=== PATIENT | female | born 1945 | race Caucasian/White ===

== ENCOUNTER 2018-12-01 16:35 | Emergency (ER) | payer MEDICARE, OTHER ==
[~2018-12-01] VITALS: Ht 157.5 cm; Wt 61.2 kg
[~2018-12-01 16:35] MED LIST: ALEN70; ALEN70 PO; CALCAVITD PO; CHOL10002 PO; DONE10 PO; FLUO20 PO; LEVFLO250; LEVFLO500 PO; LEVSOD112 PO; LEVSOD137 PO; LEVSOD150; LOPE2C PO; MELO7.5 PO; PHENA200 PO; PRAM.125; PRAM.5 PO; PRED; PRED5 PO; VALD20
[2018-12-01 17:07] LABS: BASOPHILS ABSOLUTE AUTO 0.01 K/mm3 (0.00-0.23); BASOPHILS PERCENT AUTO 0 % (0-2); EOSINOPHILS ABSOLUTE AUTO 0.06 K/mm3 (0.00-0.68); EOSINOPHILS PERCENT AUTO 1 % (0-6); Hemoglobin 15.7 g/dL (11.5-16.0); IMMATURE GRAN ABSOLUTE AUTO 0.01 K/mm3 (0.00-0.10); IMMATURE GRAN PERCENT AUTO 0 % (0-1); LYMPHOCYTES ABSOLUTE AUTO 0.99 K/mm3 (0.84-5.20); LYMPHOCYTES PERCENT AUTO 18 % (21-46); MONOCYTES ABSOLUTE AUTO 0.35 K/mm3 (0.16-1.47); MONOCYTES PERCENT AUTO 7 % (4-13); Mean Corpuscular HGB 30.7 pg (26.0-34.0); Mean Corpuscular HGB Conc 33.4 g/dL (31.5-36.5); Mean Corpuscular Volume 92 fL (80-100); Mean Platelet Volume 8.5 fL (9.1-12.4); NEUTROPHILS ABSOLUTE AUTO 3.97 K/mm3 (1.96-9.15); NEUTROPHILS PERCENT AUTO 74 % (41-73); Platelet Count 271 K/mm3 (150-400); RDW Coefficient Variation 11.9 % (11.7-14.2); RDW Standard Deviation 40.6 fL (35.1-46.3); Red Blood Cell Count 5.12 M/mm3 (3.80-5.20); White Blood Cell Count 5.39 K/mm3 (4.00-11.30)
[2018-12-01 17:26] LABS: Albumin, Blood 3.9 g/dL (3.4-5.0); Bilirubin, Total 0.4 mg/dL (0.1-1.0); Bun/Creatinine Ratio 19.3 (12.0-20.0); Calcium, Blood 8.8 mg/dL (8.5-10.1); Creatinine, Blood 1.35 mg/dL (0.40-1.00); Potassium, Blood 3.3 mmol/L (3.5-5.5); Total Protein, Blood 7.9 g/dL (6.4-8.2)
[2018-12-01] MEDS ORDERED: Prozac40 MG PO (17:26)
[2018-12-01] MEDS ORDERED: Amphetamine Sal30 MG PO (17:28)
[2018-12-01] MEDS ORDERED: DONE5 PO (18:31)
[2018-12-01 19:12] LABS: Source, Urine Clean Catch
[2018-12-01 19:17] LABS: Bilirubin, Urine Neg (Neg); Blood, Urine 1+ (Neg); Glucose Qualitative, Urine Neg (Neg); Ketones, Urine Neg (Neg); Leukocyte Esterase, Urine 3+ (Neg); Nitrite, Urine Neg (Neg); Protein, Urine 2+ (Neg); Specific Gravity, Urine 1.025 (1.003-1.022); Urobilinogen, Urine NORM (Normal)
[2018-12-01 19:22] LABS: Appearance, Urine Clear (Clear); Color, Urine Yellow (P-Yellow)
[2018-12-01 19:25] LABS: Bacteria Mod /hpf; Squamous Epithelial Cells Few /hpf (Few); White Blood Cells, Urine 50-100 /hpf (0-5)
[2018-12-01] MEDS ORDERED: CEPH500 PO (19:36)
[2018-12-01] MEDS ORDERED: ONDA4ODT MM (19:36)
[2018-12-02 09:53] LABS: Albumin, Blood 4.2 g/dL (3.4-5.0); Albumin/Globulin Ratio 1.1 (0.8-1.8); Bilirubin, Total 0.5 mg/dL (0.1-1.0); Bun/Creatinine Ratio 18.2 (12.0-20.0); Calcium, Blood 9.2 mg/dL (8.5-10.1); Creatinine, Blood 1.48 mg/dL (0.40-1.00); Globulin, Blood 3.7 g/dL (2.2-4.0); Potassium, Blood 4.2 mmol/L (3.5-5.5); Total Protein, Blood 7.9 g/dL (6.4-8.2)
== END 2018-12-01 21:30 | disposition home or self-care (01) ==
LOC: ER 16:35
PROVIDERS: Emergency Medicine
DX: E86.0 Dehydration (principal); N39.0 Urinary tract infection, site not specified; Z91.048 Other nonmedicinal substance allergy status; Z88.8 Allergy status to other drugs, medicaments and biological substances; Z88.1 Allergy status to other antibiotic agents; Z79.899 Other long term (current) drug therapy
CPT/HCPCS: 36415; 80053; 81001; 83690; 83735; 85025; 87077; 87086; 87186; 96361; 96365; 96375; 99284-25; A9270-GY; J0696; J2405; J7030

== ENCOUNTER 2020-01-16 12:50 | Emergency (ER) | payer MEDICARE, OTHER ==
[~2020-01-16] VITALS: Ht 157.5 cm; Wt 54.4 kg
[~2020-01-16 12:50] MED LIST changes: +Amphetamine Sal30 MG PO; +CEPH500 PO; +DONE5 PO; +ONDA4ODT MM; +Prozac40 MG PO
[2020-01-16 13:56] LABS: BASOPHILS ABSOLUTE AUTO 0.03 K/mm3 (0.00-0.23); BASOPHILS PERCENT AUTO 0 % (0-2); EOSINOPHILS ABSOLUTE AUTO 0.04 K/mm3 (0.00-0.68); EOSINOPHILS PERCENT AUTO 1 % (0-6); Hematocrit 47.2 % (33.0-51.0); Hemoglobin 15.1 g/dL (11.5-16.0); IMMATURE GRAN ABSOLUTE AUTO 0.02 K/mm3 (0.00-0.10); IMMATURE GRAN PERCENT AUTO 0 % (0-1); LYMPHOCYTES PERCENT AUTO 14 % (21-46); MONOCYTES ABSOLUTE AUTO 0.42 K/mm3 (0.16-1.47); MONOCYTES PERCENT AUTO 6 % (4-13); Mean Corpuscular HGB 30.5 pg (26.0-34.0); Mean Corpuscular Volume 95 fL (80-100); Mean Platelet Volume 8.3 fL (9.1-12.4); NEUTROPHILS ABSOLUTE AUTO 5.66 K/mm3 (1.96-9.15); NEUTROPHILS PERCENT AUTO 79 % (41-73); Platelet Count 290 K/mm3 (150-400); RDW Coefficient Variation 12.4 % (11.7-14.2); RDW Standard Deviation 43.9 fL (35.1-46.3); Red Blood Cell Count 4.95 M/mm3 (3.80-5.20); White Blood Cell Count 7.17 K/mm3 (4.00-11.30)
[2020-01-16 14:12] LABS: Albumin, Blood 3.9 g/dL (3.4-5.0); Albumin/Globulin Ratio 1.1 (0.8-1.8); Bilirubin, Total 0.4 mg/dL (0.1-1.0); Bun/Creatinine Ratio 14.6 (12.0-20.0); Calcium, Blood 8.9 mg/dL (8.5-10.1); Creatinine, Blood 1.23 mg/dL (0.40-1.00); Globulin, Blood 3.7 g/dL (2.2-4.0); Potassium, Blood 3.7 mmol/L (3.5-5.5); Total Protein, Blood 7.6 g/dL (6.4-8.2)
[2020-01-16] MEDS ORDERED: ONDA4ODT MM (15:31)
== END 2020-01-16 15:52 | disposition home or self-care (01) ==
LOC: ER 12:50
PROVIDERS: Emergency Medicine
DX: R11.2 Nausea with vomiting, unspecified (principal); Z88.8 Allergy status to other drugs, medicaments and biological substances; Z91.048 Other nonmedicinal substance allergy status; Z88.1 Allergy status to other antibiotic agents; Z79.899 Other long term (current) drug therapy
CPT/HCPCS: 36415; 80053; 85025; 93005; 93010; 96361; 96374; 99284-25; J2405; J7030

== ENCOUNTER 2020-01-24 14:28 | Emergency (ER) | payer MEDICARE, OTHER ==
[~2020-01-24] VITALS: Ht 157.5 cm; Wt 56.7 kg
[2020-01-24 15:47] LABS: BASOPHILS ABSOLUTE AUTO 0.04 K/mm3 (0.00-0.23); BASOPHILS PERCENT AUTO 0 % (0-2); EOSINOPHILS ABSOLUTE AUTO 0.03 K/mm3 (0.00-0.68); EOSINOPHILS PERCENT AUTO 0 % (0-6); Hematocrit 47.9 % (33.0-51.0); Hemoglobin 15.6 g/dL (11.5-16.0); IMMATURE GRAN ABSOLUTE AUTO 0.04 K/mm3 (0.00-0.10); IMMATURE GRAN PERCENT AUTO 0 % (0-1); LYMPHOCYTES ABSOLUTE AUTO 1.27 K/mm3 (0.84-5.20); LYMPHOCYTES PERCENT AUTO 13 % (21-46); MONOCYTES ABSOLUTE AUTO 0.53 K/mm3 (0.16-1.47); MONOCYTES PERCENT AUTO 5 % (4-13); Mean Corpuscular HGB 30.8 pg (26.0-34.0); Mean Corpuscular HGB Conc 32.6 g/dL (31.5-36.5); Mean Corpuscular Volume 95 fL (80-100); Mean Platelet Volume 8.5 fL (9.1-12.4); NEUTROPHILS ABSOLUTE AUTO 8.09 K/mm3 (1.96-9.15); NEUTROPHILS PERCENT AUTO 81 % (41-73); Platelet Count 314 K/mm3 (150-400); RDW Coefficient Variation 12.3 % (11.7-14.2); RDW Standard Deviation 43.1 fL (35.1-46.3); Red Blood Cell Count 5.06 M/mm3 (3.80-5.20)
[2020-01-24 15:48] LABS: Albumin/Globulin Ratio 1.1 (0.8-1.8); Bilirubin, Total 0.5 mg/dL (0.1-1.0); Bun/Creatinine Ratio 18.4 (12.0-20.0); Calcium, Blood 9.3 mg/dL (8.5-10.1); Creatinine, Blood 1.63 mg/dL (0.40-1.00); Globulin, Blood 3.8 g/dL (2.2-4.0); Potassium, Blood 4.3 mmol/L (3.5-5.5); Total Protein, Blood 7.8 g/dL (6.4-8.2)
[2020-01-24] MEDS ORDERED: MECL25 PO (19:08)
== END 2020-01-24 19:50 | disposition home or self-care (01) ==
LOC: ER 14:28
PROVIDERS: Physician Assistant
DX: R42 Dizziness and giddiness (principal); R11.2 Nausea with vomiting, unspecified; E86.0 Dehydration; Z88.8 Allergy status to other drugs, medicaments and biological substances; Z91.048 Other nonmedicinal substance allergy status; Z88.1 Allergy status to other antibiotic agents; Z79.899 Other long term (current) drug therapy
CPT/HCPCS: 36415; 80053; 85025; 93005; 93010; 96361; 96374; 96375; 99284-25; J0780; J1200; J7030

== ENCOUNTER 2020-04-13 15:15 | Observation (INO) | payer MEDICARE, OTHER ==
[~2020-04-13] VITALS: Ht 157.5 cm; Wt 48.5 kg
[~2020-04-13 15:15] MED LIST changes: -DONE5 PO; -LEVSOD112 PO; +MECL25 PO; -Prozac40 MG PO
[2020-04-13 15:54] LABS: BASOPHILS ABSOLUTE AUTO 0.04 K/mm3 (0.00-0.23); BASOPHILS PERCENT AUTO 0 % (0-2); EOSINOPHILS ABSOLUTE AUTO 0.06 K/mm3 (0.00-0.68); EOSINOPHILS PERCENT AUTO 1 % (0-6); Hematocrit 45.3 % (33.0-51.0); Hemoglobin 15.3 g/dL (11.5-16.0); IMMATURE GRAN ABSOLUTE AUTO 0.06 K/mm3 (0.00-0.10); IMMATURE GRAN PERCENT AUTO 1 % (0-1); LYMPHOCYTES ABSOLUTE AUTO 1.24 K/mm3 (0.84-5.20); LYMPHOCYTES PERCENT AUTO 12 % (21-46); MONOCYTES ABSOLUTE AUTO 0.61 K/mm3 (0.16-1.47); MONOCYTES PERCENT AUTO 6 % (4-13); Mean Corpuscular HGB 30.7 pg (26.0-34.0); Mean Corpuscular HGB Conc 33.8 g/dL (31.5-36.5); Mean Corpuscular Volume 91 fL (80-100); Mean Platelet Volume 8.8 fL (9.1-12.4); NEUTROPHILS ABSOLUTE AUTO 8.24 K/mm3 (1.96-9.15); NEUTROPHILS PERCENT AUTO 80 % (41-73); Platelet Count 317 K/mm3 (150-400); RDW Standard Deviation 39.9 fL (35.1-46.3); Red Blood Cell Count 4.98 M/mm3 (3.80-5.20); White Blood Cell Count 10.25 K/mm3 (4.00-11.30)
[2020-04-13 16:15] LABS: Troponin I <0.015 ng/mL (0.000-0.040)
[2020-04-13 16:16] LABS: Alanine Aminotransfer (ALT/SGP 46 U/L (12-78); Albumin, Blood 3.7 g/dL (3.4-5.0); Alk Phos 86 U/L (50-136); Anion Gap 12 mmol/L (6-16); Aspartate Aminotrans (AST/SGOT 30 U/L (12-37); Bilirubin, Total 0.5 mg/dL (0.1-1.0); Blood Urea Nitrogen 69 mg/dL (8-24); Bun/Creatinine Ratio 25.7 (12.0-20.0); CO2, Blood 18 mmol/L (21-32); Calcium, Blood 9.1 mg/dL (8.5-10.1); Chloride, Blood 101 mmol/L (98-108); Creatinine, Blood 2.68 mg/dL (0.40-1.00); Globulin, Blood 3.8 g/dL (2.2-4.0); Glomerular Filtration Rate 18 (60-); Glucose, Blood 190 mg/dL (70-99); Potassium, Blood 5.1 mmol/L (3.5-5.5); Sodium, Blood 131 mmol/L (136-145); Total Protein, Blood 7.5 g/dL (6.4-8.2)
[2020-04-13] MEDS ORDERED: NEURONTIN300 MG PO (18:50)
[2020-04-13] MEDS ORDERED: PRED5 PO (18:51)
[2020-04-13] MEDS ORDERED: LEVSOD112 PO (18:52)
[2020-04-13] MEDS ORDERED: Mirapex0.25 MG PO (18:53)
[2020-04-13] MEDS ORDERED: Prozac40 MG PO (19:40)
[2020-04-13] MEDS ORDERED: DONEPEZIL HCL10 MG PO (19:40)
[2020-04-13] MEDS ORDERED: MOTION RELIEF25 M1 PO (19:46)
[2020-04-13] MEDS ORDERED: ZOFRAN8 MG PO (19:47)
--- NOTE | 2020-04-13 21:45 | NUR ---
REPORT RECEIVED FROM MARCOED RN AT 2122. PT TRANSPORTED TO MEDICAL FLOOR VIA GURNEY, AMBULATED TO BATHROOM AND BACK TO BED ON ARRIVAL TO FLOOR WITH SBA STEADY GAIT, NO S/S ACUTE DISTRESS NOTED. RESPS EVEN AND UNLABORED, VSS. PT A&O, PLEASANT, BUT VERY [place]. SITUATED IN BED, BROUGHT PT WARM BLANKETS. ORIENTED TO ROOM AND UNIT, DEMONSTRATED HOW TO USE CALL LIGHT. SIDERAILS UP X3, CALL LIGHT, POSSESSIONS IN REACH, BED IN LOWEST POSITION WITH ALARM ON. CALL LIGHT, POSSESSSIONS IN REACH. WILL CONTINUE TO MONITOR.
--- NOTE | 2020-04-13 22:20 | NUR ---
SPOKE TO DR. SLATER TO CLARIFY PT'S ORDERS FOR IVF. STATED TO CONTINUE NS ORDERED PER EMAR. NO OTHER ORDERS RECEIVED. CONTINUE TO MONITOR.
--- NOTE | 2020-04-13 22:54 | NUR ---
CALL PLACED TO PT'S TO CLARIFY MEDICATIONS AND HX, PT IS A POOR HISTORIAN, DOESN'T EASILY REMEMBER OWN MEDICATIONS OR HX. ADMISSION HX AND MED-REC COMPLETED. DENIES QUESTIONS OR CONCERNS AT THIS TIME. PLANS TO VISIT PT TOMORROW.
[2020-04-14 04:57] LABS: BASOPHILS ABSOLUTE AUTO 0.04 K/mm3 (0.00-0.23); BASOPHILS PERCENT AUTO 0 % (0-2); EOSINOPHILS ABSOLUTE AUTO 0.21 K/mm3 (0.00-0.68); EOSINOPHILS PERCENT AUTO 2 % (0-6); Hematocrit 38.7 % (33.0-51.0); Hemoglobin 12.9 g/dL (11.5-16.0); IMMATURE GRAN ABSOLUTE AUTO 0.05 K/mm3 (0.00-0.10); IMMATURE GRAN PERCENT AUTO 1 % (0-1); LYMPHOCYTES ABSOLUTE AUTO 2.15 K/mm3 (0.84-5.20); LYMPHOCYTES PERCENT AUTO 24 % (21-46); MONOCYTES ABSOLUTE AUTO 0.75 K/mm3 (0.16-1.47); MONOCYTES PERCENT AUTO 8 % (4-13); Mean Corpuscular HGB 30.6 pg (26.0-34.0); Mean Corpuscular HGB Conc 33.3 g/dL (31.5-36.5); Mean Corpuscular Volume 92 fL (80-100); Mean Platelet Volume 8.6 fL (9.1-12.4); NEUTROPHILS ABSOLUTE AUTO 5.82 K/mm3 (1.96-9.15); NEUTROPHILS PERCENT AUTO 65 % (41-73); Platelet Count 256 K/mm3 (150-400); RDW Coefficient Variation 12.2 % (11.7-14.2); RDW Standard Deviation 41.1 fL (35.1-46.3); Red Blood Cell Count 4.22 M/mm3 (3.80-5.20); White Blood Cell Count 9.02 K/mm3 (4.00-11.30)
[2020-04-14 05:34] LABS: Thyroid Stimulating Hormone 0.615 uIU/mL (0.360-4.800)
[2020-04-14 05:35] LABS: Calcium, Blood 8.2 mg/dL (8.5-10.1); Creatinine, Blood 2.25 mg/dL (0.40-1.00); Potassium, Blood 4.7 mmol/L (3.5-5.5)
--- NOTE | 2020-04-14 06:33 | NUR ---
SHIFT SUMMARY PT HAS HAD NO ACUTE CHANGES IN CONDITION SINCE ARRIVAL TO MEDICAL FLOOR. WAS MONITORED EVERY 1-2 HOURS WITH NEEDS MET. SLEPT T/O NIGHT. VSS. IVF ONGOING. PT DENIES NEEDS AT THIS TIME. CALL LIGHT, POSSESSIONS IN REACH. BED IN LOW POSITION WITH ALARMS ON. WILL CONTINUE TO MONITOR AND PROVIDE CARE NEEDED UNTIL DAY RN ASSUMES CARE.
--- NOTE | 2020-04-14 14:22 | NUR ---
Met with patients to review pt needs and goals of care. Pt was blae to nod and smile but non verbal and slept throught the visit. states he is the primary caregiver and has minimal help. He states on her good days she was still very active and they would get out and do some activities. He states she has been declining more in her ability to maintain her fluid balance. He is wondering if her gut is shutting down. We reviewed he disease process and fluid balnace. Gave him some strategie son monitoring her fluid balance. Daily weights and bp checks and intak and output. Discussed her fall risks and risk for injury. Reviewed home health and hospice care and stategies of future care. integration manager was present. Suggest home health for neuro assessment and vitals checks and increased lab draws. Discussed that with his primary care PA and home hardy they can help hism decide on when to do hospice. Review of hospice holistic care and support and reducing suffering. states they have a will and POA he believes they have a advance directive and she would not want life support. Advised she is full code. Review of POLST form and having it on record he is amendable to filling one out. He is meeting with home care manager rn and will follow up. updated nursing on consult.
--- NOTE | 2020-04-14 14:25 | NUR ---
IVF RATE INCREASED FROM 75ML/HR TO 100ML/HR
[2020-04-14 17:40] LABS: Appearance, Urine Hazy (Clear); Bilirubin, Urine Neg (Neg); Blood, Urine 2+ (Neg); Color, Urine Yellow (P-Yellow); Glucose Qualitative, Urine Neg (Neg); Ketones, Urine Neg (Neg); Leukocyte Esterase, Urine 3+ (Neg); Nitrite, Urine Pos (Neg); Protein, Urine 1+ (Neg); Urobilinogen, Urine NORM (Normal)
[2020-04-14 17:55] LABS: Bacteria Many /hpf; Squamous Epithelial Cells Few /hpf (Few)
--- NOTE | 2020-04-15 04:24 | NUR ---
SHIFT SUMMARY: VSS. AFEB. AAOX2. PLEASANTLY CONFUSED/FORGETFUL. EASILY REDIRECTABLE. VERY [place]. PT DOES NOT KNOW WHERE HER HEARING AIDS ARE. DENIES DIZZINESS, LIGHTHEADEDNESS UPON STANDING. UP W/SBA. MANAGING ILEOSTOMY INDEPENDENTLY. FLUIDS ENCOURAGED AT HS. PT TAKING ONLY SMALL SIPS OF FLUIDS. SLEPT WELL THROUGH MOST OF THE NIGHT. NO ACUTE CHANGES AT THIS TIME.
[2020-04-15 06:01] LABS: BASOPHILS ABSOLUTE AUTO 0.03 K/mm3 (0.00-0.23); BASOPHILS PERCENT AUTO 0 % (0-2); EOSINOPHILS ABSOLUTE AUTO 0.18 K/mm3 (0.00-0.68); EOSINOPHILS PERCENT AUTO 2 % (0-6); Hematocrit 42.2 % (33.0-51.0); Hemoglobin 13.7 g/dL (11.5-16.0); IMMATURE GRAN ABSOLUTE AUTO 0.05 K/mm3 (0.00-0.10); IMMATURE GRAN PERCENT AUTO 1 % (0-1); LYMPHOCYTES ABSOLUTE AUTO 1.56 K/mm3 (0.84-5.20); LYMPHOCYTES PERCENT AUTO 18 % (21-46); MONOCYTES ABSOLUTE AUTO 0.69 K/mm3 (0.16-1.47); MONOCYTES PERCENT AUTO 8 % (4-13); Mean Corpuscular HGB 30.8 pg (26.0-34.0); Mean Corpuscular HGB Conc 32.5 g/dL (31.5-36.5); Mean Corpuscular Volume 95 fL (80-100); Mean Platelet Volume 8.5 fL (9.1-12.4); NEUTROPHILS ABSOLUTE AUTO 6.15 K/mm3 (1.96-9.15); NEUTROPHILS PERCENT AUTO 71 % (41-73); Platelet Count 265 K/mm3 (150-400); Red Blood Cell Count 4.45 M/mm3 (3.80-5.20); White Blood Cell Count 8.66 K/mm3 (4.00-11.30)
[2020-04-15 06:16] LABS: Albumin, Blood 3.2 g/dL (3.4-5.0); Anion Gap 7 mmol/L (6-16); Blood Urea Nitrogen 46 mg/dL (8-24); Bun/Creatinine Ratio 28.4 (12.0-20.0); CO2, Blood 23 mmol/L (21-32); Calcium, Blood 8.2 mg/dL (8.5-10.1); Chloride, Blood 110 mmol/L (98-108); Creatinine, Blood 1.62 mg/dL (0.40-1.00); Glomerular Filtration Rate 33 (60-); Glucose, Blood 80 mg/dL (70-99); Phosphorus, Blood 4.3 mg/dL (2.5-4.9); Potassium, Blood 3.6 mmol/L (3.5-5.5); Sodium, Blood 140 mmol/L (136-145)
--- NOTE | 2020-04-15 17:21 | NUR ---
Shift Summary A/Oxself and family. Also knows city, but could not recall hospital name. Ortho vitals completed in AM, see EHR. Independent, cares for own ileostomy. Drainage in ileostomy is liquidy and brown. Calls appropriately for needs. has been at bedside most of the day. Physical therapy evaluated patient today, see PT notes. Denies pain, nausea, vomiting, sob. Appetite probably could be better. No acute changes or concerns. Will continue to monitor.
--- NOTE | 2020-04-16 04:18 | NUR ---
SHIFT SUMMARY: VSS. AFEB. AAOX2. VERY [place]. ABLE TO COMMUNICATE NEEDS. PLEASANT. IV FLUIDS CONTINUOUSLY THROUGH THE NIGHT PER ORDERS. PT REPORTING FEELING BETTER OVERALL. DENIES DIZZINESS/LIGHTHEADEDNESS. SOME NAUSEA INITIALLY TONIGHT AFTER DINNER, RESOLVED. NPS ILEOSTOMY INDEPENDENTLY. NO ACUTE CONCERNS AT THIS TIME.
[2020-04-16 07:48] LABS: Albumin, Blood 2.6 g/dL (3.4-5.0); Anion Gap 6 mmol/L (6-16); Blood Urea Nitrogen 33 mg/dL (8-24); CO2, Blood 20 mmol/L (21-32); Calcium, Blood 7.7 mg/dL (8.5-10.1); Chloride, Blood 116 mmol/L (98-108); Creatinine, Blood 1.27 mg/dL (0.40-1.00); Glomerular Filtration Rate 44 (60-); Glucose, Blood 78 mg/dL (70-99); Potassium, Blood 3.2 mmol/L (3.5-5.5); Sodium, Blood 142 mmol/L (136-145)
--- NOTE | 2020-04-16 11:01 | NUR ---
Discharge Summary Patient discharging to home. Patient is extremely [place] and has only one side hearing aid that does not work very well so this RN reviewed discharge paperwork with patient and at bedside. Copy provided. IV removed, WNL. Gave time to ask questions, patient and had none. Personal belongings sent home. Escorted by HARNESS [employer]TER via w/c. Personal transport home.
== END 2020-04-16 11:32 | disposition home or self-care (01) ==
LOC: ER 15:15 → MEDS 15:16 → ER 21:30 → MEDS 21:41
PROVIDERS: Internal Medicine; Physician Assistant; ADMIT Internal Medicine
DX: N17.9 Acute kidney failure, unspecified (principal); R55 Syncope and collapse; K50.90 Crohn's disease, unspecified, without complications; E46 Unspecified protein-calorie malnutrition; E86.0 Dehydration; F01.50 Vascular dementia, unspecified severity, without behavioral disturbance, psychotic disturbance, mood disturbance, and anxiety; Z88.8 Allergy status to other drugs, medicaments and biological substances; Z88.1 Allergy status to other antibiotic agents; Z79.899 Other long term (current) drug therapy; Z90.49 Acquired absence of other specified parts of digestive tract; F03.90 Unspecified dementia, unspecified severity, without behavioral disturbance, psychotic disturbance, mood disturbance, and anxiety; E89.0 Postprocedural hypothyroidism; Z85.850 Personal history of malignant neoplasm of thyroid; Z93.2 Ileostomy status; Z86.73 Personal history of transient ischemic attack (TIA), and cerebral infarction without residual deficits; Z68.1 Body mass index [BMI] 19.9 or less, adult
CPT/HCPCS: 36415; 71046; 80048; 80053; 80069; 81001; 82947; 83036; 84443; 84484; 85025; 87086; 92610; 93005; 93010; 93306; 96360; 96361; 97110; 97116; 97162; 99285-25; G0378; J7030; J7120; J7512

== ENCOUNTER 2020-04-28 16:04 | Observation (INO) | payer MEDICARE, OTHER ==
[~2020-04-28] VITALS: Ht 157.5 cm; Wt 48.4 kg
[2020-04-28 17:09] LABS: BASOPHILS ABSOLUTE AUTO 0.03 K/mm3 (0.00-0.23); BASOPHILS PERCENT AUTO 0 % (0-2); EOSINOPHILS ABSOLUTE AUTO 0.13 K/mm3 (0.00-0.68); EOSINOPHILS PERCENT AUTO 2 % (0-6); Hematocrit 44.8 % (33.0-51.0); Hemoglobin 14.4 g/dL (11.5-16.0); IMMATURE GRAN ABSOLUTE AUTO 0.03 K/mm3 (0.00-0.10); IMMATURE GRAN PERCENT AUTO 0 % (0-1); LYMPHOCYTES ABSOLUTE AUTO 1.19 K/mm3 (0.84-5.20); LYMPHOCYTES PERCENT AUTO 14 % (21-46); MONOCYTES PERCENT AUTO 7 % (4-13); Mean Corpuscular HGB 30.3 pg (26.0-34.0); Mean Corpuscular HGB Conc 32.1 g/dL (31.5-36.5); Mean Corpuscular Volume 94 fL (80-100); Mean Platelet Volume 8.3 fL (9.1-12.4); NEUTROPHILS ABSOLUTE AUTO 6.83 K/mm3 (1.96-9.15); NEUTROPHILS PERCENT AUTO 78 % (41-73); Platelet Count 330 K/mm3 (150-400); RDW Coefficient Variation 12.8 % (11.7-14.2); RDW Standard Deviation 44.3 fL (35.1-46.3); Red Blood Cell Count 4.76 M/mm3 (3.80-5.20); White Blood Cell Count 8.81 K/mm3 (4.00-11.30)
[2020-04-28 17:27] LABS: Albumin, Blood 3.8 g/dL (3.4-5.0); Albumin/Globulin Ratio 0.9 (0.8-1.8); Bilirubin, Total 0.4 mg/dL (0.1-1.0); Bun/Creatinine Ratio 19.5 (12.0-20.0); Calcium, Blood 9.4 mg/dL (8.5-10.1); Creatinine, Blood 1.64 mg/dL (0.40-1.00); Globulin, Blood 4.1 g/dL (2.2-4.0); Total Protein, Blood 7.9 g/dL (6.4-8.2)
[2020-04-28] MEDS ORDERED: LEVSOD112 PO (18:03)
[2020-04-28] MEDS ORDERED: NEURONTIN300 MG PO (18:03)
[2020-04-28] MEDS ORDERED: PRED5 PO (18:04)
[2020-04-28 18:13] LABS: Source, Urine Clean Catch
[2020-04-28] MEDS ORDERED: DONEPEZIL HCL10 MG PO (18:34)
[2020-04-28] MEDS ORDERED: Prozac40 MG PO (18:34)
[2020-04-28] MEDS ORDERED: Mirapex0.25 MG PO (18:34)
[2020-04-28] MEDS ORDERED: ZOFRAN8 MG PO (18:35)
[2020-04-28] MEDS ORDERED: MOTION RELIEF25 M1 PO (18:35)
[2020-04-28 18:42] LABS: Bilirubin, Urine Neg (Neg); Blood, Urine 4+ (Neg); Glucose Qualitative, Urine Neg (Neg); Ketones, Urine 2+ (Neg); Leukocyte Esterase, Urine 3+ (Neg); Nitrite, Urine Pos (Neg); Protein, Urine 2+ (Neg); Specific Gravity, Urine 1.025 (1.003-1.022); Urobilinogen, Urine NORM (Normal)
[2020-04-28 18:55] LABS: Appearance, Urine Cloudy (Clear); Color, Urine Yellow (P-Yellow)
[2020-04-28 18:56] LABS: Bacteria Many /hpf; Red Blood Cells, Urine TNTC /hpf (0-2); Squamous Epithelial Cells Few /hpf (Few); Transitional Epithelial Cells Few /hpf (0-Rare); White Blood Cells, Urine TNTC /hpf (0-5)
[2020-04-29 05:01] LABS: Bun/Creatinine Ratio 19.5 (12.0-20.0); Creatinine, Blood 1.49 mg/dL (0.40-1.00); Potassium, Blood 3.8 mmol/L (3.5-5.5)
--- NOTE | 2020-04-29 05:45 | NUR ---
SHIFT SUMMARY- PT. NEW ADMIT FROM ED. A&O, FORGETFUL, AND ALSO VERY [place]. PT. HAS HX OF DEMENTIA. SLEPT WELL LAST NIGHT, NO APPARENT DISTRESS NOTED. PT. CALLS APPROPRIATELY, VSS. NO COMPLAINTS. CALL LIGHT WITHIN REACH, SIDE RAILS UPX2, AND BED IN LOW POSITION. WILL CONT TO MONITOR.
[2020-04-29] MEDS ORDERED: CEPH500 PO (12:05)
--- NOTE | 2020-04-29 14:15 | NUR ---
will review pt with with rosendo zavaleta for possible transtion to hospice when ready.
--- NOTE | 2020-04-29 16:35 | NUR ---
PT DISCHARGED 1345 WITH DC INSTRUCTIONS GIVEN TO PT AND . RX FAXED TO PHARMACY. GIVEN ANTIBIOTIC BEFORE SHE LEFT AND INSTRUCTED TO TAKE 2ND TONIGHT. WHEELCHAIR ESCORT OUT TO CAR, TO DRIVE PT HOME AND F/U WITH PCP IN ONE WEEK, INCLUDING F/U WITH H PYLORI
== END 2020-04-29 13:45 | disposition home or self-care (01) ==
LOC: ER 16:04 → MEDS 16:05 → ER 20:03 → MEDS 20:18
PROVIDERS: Physician Assistant; ADMIT Internal Medicine
DX: E86.0 Dehydration (principal); N18.3 Chronic kidney disease, stage 3 (moderate); N17.9 Acute kidney failure, unspecified; Z90.49 Acquired absence of other specified parts of digestive tract; F01.50 Vascular dementia, unspecified severity, without behavioral disturbance, psychotic disturbance, mood disturbance, and anxiety; N39.0 Urinary tract infection, site not specified; Z79.899 Other long term (current) drug therapy; E89.0 Postprocedural hypothyroidism; Z88.8 Allergy status to other drugs, medicaments and biological substances; Z88.1 Allergy status to other antibiotic agents; Z93.2 Ileostomy status
CPT/HCPCS: 36415; 80048; 80053; 81001; 83690; 85025; 87077; 87086; 87186; 87338; 93005; 93010; 96374; 97162; 99285-25; A9270-GY; J1650; J2405; J7030; J7120

== ENCOUNTER 2020-05-02 00:09 | Day surgery (SDC) | payer MEDICARE, OTHER ==
[~2020-05-02 00:09] MED LIST changes: +DONEPEZIL HCL10 MG PO; +LEVSOD112 PO; +MOTION RELIEF25 M1 PO; +Mirapex0.25 MG PO; +NEURONTIN300 MG PO; +Prozac40 MG PO; +ZOFRAN8 MG PO
== END 2020-05-02 22:45 | disposition home or self-care (01) ==
LOC: ATC 00:09
DX: E86.0 Dehydration (principal); N18.3 Chronic kidney disease, stage 3 (moderate); E89.0 Postprocedural hypothyroidism; N17.9 Acute kidney failure, unspecified; F01.50 Vascular dementia, unspecified severity, without behavioral disturbance, psychotic disturbance, mood disturbance, and anxiety; R11.0 Nausea; Z79.899 Other long term (current) drug therapy; Z88.8 Allergy status to other drugs, medicaments and biological substances; Z93.2 Ileostomy status; Z88.1 Allergy status to other antibiotic agents; Z90.49 Acquired absence of other specified parts of digestive tract
CPT/HCPCS: 36569; C1751; C1894

== ENCOUNTER 2020-05-10 00:25 | Day surgery (SDC) | payer MEDICARE, OTHER | END 2020-05-10 12:11 | disposition home or self-care (01) | LOC: ATC 00:25 | DX: E86.0 Dehydration (principal); F01.50 Vascular dementia, unspecified severity, without behavioral disturbance, psychotic disturbance, mood disturbance, and anxiety; H11.042 Peripheral pterygium, stationary, left eye; K91.2 Postsurgical malabsorption, not elsewhere classified; E03.9 Hypothyroidism, unspecified; K50.90 Crohn's disease, unspecified, without complications; C73 Malignant neoplasm of thyroid gland; C50.919 Malignant neoplasm of unspecified site of unspecified female breast; G25.81 Restless legs syndrome; M19.90 Unspecified osteoarthritis, unspecified site; K63.3 Ulcer of intestine; H91.93 Unspecified hearing loss, bilateral; I10 Essential (primary) hypertension; Z88.1 Allergy status to other antibiotic agents; Z88.8 Allergy status to other drugs, medicaments and biological substances; Z79.899 Other long term (current) drug therapy | CPT/HCPCS: 96360; 96361; J7030; J7040 ==

== ENCOUNTER 2020-05-17 00:21 | Day surgery (SDC) | payer MEDICARE, OTHER | END 2020-05-17 13:10 | disposition home or self-care (01) | LOC: ATC 00:21 | DX: E86.0 Dehydration (principal); F01.50 Vascular dementia, unspecified severity, without behavioral disturbance, psychotic disturbance, mood disturbance, and anxiety; H11.042 Peripheral pterygium, stationary, left eye; K91.2 Postsurgical malabsorption, not elsewhere classified; M06.9 Rheumatoid arthritis, unspecified; E03.9 Hypothyroidism, unspecified; K50.90 Crohn's disease, unspecified, without complications; C73 Malignant neoplasm of thyroid gland; C50.919 Malignant neoplasm of unspecified site of unspecified female breast; G25.81 Restless legs syndrome; M19.90 Unspecified osteoarthritis, unspecified site; K63.3 Ulcer of intestine; H91.93 Unspecified hearing loss, bilateral; Z88.1 Allergy status to other antibiotic agents; Z79.899 Other long term (current) drug therapy | CPT/HCPCS: 96360; 96361; J7030 ==

== ENCOUNTER 2020-05-22 00:17 | Day surgery (SDC) | payer MEDICARE, OTHER | END 2020-05-22 17:19 | disposition home or self-care (01) | LOC: ATC 00:17 | DX: E86.0 Dehydration (principal); F01.50 Vascular dementia, unspecified severity, without behavioral disturbance, psychotic disturbance, mood disturbance, and anxiety; H11.042 Peripheral pterygium, stationary, left eye; K91.2 Postsurgical malabsorption, not elsewhere classified; E03.9 Hypothyroidism, unspecified; K50.90 Crohn's disease, unspecified, without complications; C73 Malignant neoplasm of thyroid gland; C50.919 Malignant neoplasm of unspecified site of unspecified female breast; G25.81 Restless legs syndrome; M19.90 Unspecified osteoarthritis, unspecified site; K63.3 Ulcer of intestine; H91.93 Unspecified hearing loss, bilateral; Z88.1 Allergy status to other antibiotic agents; N18.2 Chronic kidney disease, stage 2 (mild); Z79.899 Other long term (current) drug therapy | CPT/HCPCS: 96360; 96361; J7030 ==

== ENCOUNTER 2020-05-29 00:17 | Day surgery (SDC) | payer MEDICARE, OTHER | END 2020-05-29 15:27 | disposition home or self-care (01) | LOC: ATC 00:17 | DX: E86.0 Dehydration (principal); F01.50 Vascular dementia, unspecified severity, without behavioral disturbance, psychotic disturbance, mood disturbance, and anxiety; H11.042 Peripheral pterygium, stationary, left eye; K91.2 Postsurgical malabsorption, not elsewhere classified; E03.9 Hypothyroidism, unspecified; K50.90 Crohn's disease, unspecified, without complications; C73 Malignant neoplasm of thyroid gland; C50.919 Malignant neoplasm of unspecified site of unspecified female breast; G25.81 Restless legs syndrome; M19.90 Unspecified osteoarthritis, unspecified site; K63.3 Ulcer of intestine; H91.93 Unspecified hearing loss, bilateral; Z88.1 Allergy status to other antibiotic agents; Z79.899 Other long term (current) drug therapy | CPT/HCPCS: 96360; J7030; J7040 ==

== ENCOUNTER 2020-06-05 00:18 | Day surgery (SDC) | payer MEDICARE, OTHER | END 2020-06-05 22:41 | disposition home or self-care (01) | LOC: ATC 00:18 | DX: E86.0 Dehydration (principal); F01.50 Vascular dementia, unspecified severity, without behavioral disturbance, psychotic disturbance, mood disturbance, and anxiety; H11.042 Peripheral pterygium, stationary, left eye; K91.2 Postsurgical malabsorption, not elsewhere classified; E03.9 Hypothyroidism, unspecified; K50.90 Crohn's disease, unspecified, without complications; C73 Malignant neoplasm of thyroid gland; C50.919 Malignant neoplasm of unspecified site of unspecified female breast; G25.81 Restless legs syndrome; M19.90 Unspecified osteoarthritis, unspecified site; K63.3 Ulcer of intestine; H91.93 Unspecified hearing loss, bilateral; Z88.8 Allergy status to other drugs, medicaments and biological substances; N18.2 Chronic kidney disease, stage 2 (mild); Z79.899 Other long term (current) drug therapy | CPT/HCPCS: 96360; 96361; J7030; J7040 ==

== ENCOUNTER 2020-06-13 00:25 | Day surgery (SDC) | payer MEDICARE, OTHER ==
[~2020-06-13 00:25] MED LIST changes: +ONDA8 PO; -ZOFRAN8 MG PO
== END 2020-06-13 17:15 | disposition home or self-care (01) ==
LOC: ATC 00:25
DX: E86.0 Dehydration (principal); N18.2 Chronic kidney disease, stage 2 (mild); K91.2 Postsurgical malabsorption, not elsewhere classified; E03.9 Hypothyroidism, unspecified; F01.50 Vascular dementia, unspecified severity, without behavioral disturbance, psychotic disturbance, mood disturbance, and anxiety; H11.042 Peripheral pterygium, stationary, left eye; C73 Malignant neoplasm of thyroid gland; C50.919 Malignant neoplasm of unspecified site of unspecified female breast; G25.81 Restless legs syndrome; M19.90 Unspecified osteoarthritis, unspecified site; H91.93 Unspecified hearing loss, bilateral; Z93.2 Ileostomy status; Z79.899 Other long term (current) drug therapy; Z88.1 Allergy status to other antibiotic agents; Z88.8 Allergy status to other drugs, medicaments and biological substances; Z91.048 Other nonmedicinal substance allergy status; Z51.5 Encounter for palliative care
CPT/HCPCS: 96360; 96361; J7030

== ENCOUNTER 2020-06-21 03:10 | Day surgery (SDC) | payer MEDICARE, OTHER | END 2020-06-21 15:00 | disposition home or self-care (01) | LOC: ATC 03:10 | DX: E86.0 Dehydration (principal); K91.2 Postsurgical malabsorption, not elsewhere classified; C73 Malignant neoplasm of thyroid gland; C50.919 Malignant neoplasm of unspecified site of unspecified female breast; F01.50 Vascular dementia, unspecified severity, without behavioral disturbance, psychotic disturbance, mood disturbance, and anxiety; H11.042 Peripheral pterygium, stationary, left eye; M06.9 Rheumatoid arthritis, unspecified; E03.9 Hypothyroidism, unspecified; G25.81 Restless legs syndrome; M19.90 Unspecified osteoarthritis, unspecified site; H91.93 Unspecified hearing loss, bilateral; Z88.1 Allergy status to other antibiotic agents; Z88.8 Allergy status to other drugs, medicaments and biological substances; Z91.048 Other nonmedicinal substance allergy status; Z51.5 Encounter for palliative care; Z79.899 Other long term (current) drug therapy | CPT/HCPCS: 96360; J7030; J7040 ==

== ENCOUNTER 2020-06-28 02:43 | Day surgery (SDC) | payer MEDICARE, OTHER | END 2020-06-28 12:47 | disposition home or self-care (01) | LOC: ATC 02:43 | DX: E86.0 Dehydration (principal); F01.50 Vascular dementia, unspecified severity, without behavioral disturbance, psychotic disturbance, mood disturbance, and anxiety; H11.042 Peripheral pterygium, stationary, left eye; K91.2 Postsurgical malabsorption, not elsewhere classified; E03.9 Hypothyroidism, unspecified; K50.90 Crohn's disease, unspecified, without complications; C73 Malignant neoplasm of thyroid gland; C50.919 Malignant neoplasm of unspecified site of unspecified female breast; G25.81 Restless legs syndrome; M19.90 Unspecified osteoarthritis, unspecified site; K63.3 Ulcer of intestine; H91.93 Unspecified hearing loss, bilateral; Z79.899 Other long term (current) drug therapy | CPT/HCPCS: 96360; J7120 ==

== ENCOUNTER 2020-07-05 00:50 | Day surgery (SDC) | payer MEDICARE, OTHER | END 2020-07-05 11:43 | disposition home or self-care (01) | LOC: ATC 00:50 | DX: E86.0 Dehydration (principal); F01.50 Vascular dementia, unspecified severity, without behavioral disturbance, psychotic disturbance, mood disturbance, and anxiety; H11.042 Peripheral pterygium, stationary, left eye; K91.2 Postsurgical malabsorption, not elsewhere classified; E03.9 Hypothyroidism, unspecified; K50.90 Crohn's disease, unspecified, without complications; C73 Malignant neoplasm of thyroid gland; C50.919 Malignant neoplasm of unspecified site of unspecified female breast; G25.81 Restless legs syndrome; M19.90 Unspecified osteoarthritis, unspecified site; K63.3 Ulcer of intestine; H91.93 Unspecified hearing loss, bilateral; Z88.1 Allergy status to other antibiotic agents; Z79.899 Other long term (current) drug therapy; N18.2 Chronic kidney disease, stage 2 (mild) | CPT/HCPCS: 96360; 96361; J7030 ==

== ENCOUNTER 2020-07-12 02:51 | Day surgery (SDC) | payer MEDICARE, OTHER | END 2020-07-12 12:19 | disposition home or self-care (01) | LOC: ATC 02:51 | DX: E86.0 Dehydration (principal); K91.2 Postsurgical malabsorption, not elsewhere classified; E03.9 Hypothyroidism, unspecified; G25.81 Restless legs syndrome; F01.50 Vascular dementia, unspecified severity, without behavioral disturbance, psychotic disturbance, mood disturbance, and anxiety; H11.042 Peripheral pterygium, stationary, left eye; M19.90 Unspecified osteoarthritis, unspecified site; Z85.850 Personal history of malignant neoplasm of thyroid; Z93.2 Ileostomy status; Z85.3 Personal history of malignant neoplasm of breast; Z85.828 Personal history of other malignant neoplasm of skin; Z88.1 Allergy status to other antibiotic agents; Z88.8 Allergy status to other drugs, medicaments and biological substances; Z91.048 Other nonmedicinal substance allergy status; Z79.899 Other long term (current) drug therapy; Z51.5 Encounter for palliative care | CPT/HCPCS: 96360; 96361; J7030 ==

== ENCOUNTER 2020-07-19 14:49 | Emergency (ER) | payer MEDICARE, OTHER ==
[~2020-07-19] VITALS: Ht 157.5 cm; Wt 43.1 kg
[2020-07-19 15:28] LABS: BASOPHILS ABSOLUTE AUTO 0.04 K/mm3 (0.00-0.23); BASOPHILS PERCENT AUTO 0 % (0-2); EOSINOPHILS ABSOLUTE AUTO 0.04 K/mm3 (0.00-0.68); EOSINOPHILS PERCENT AUTO 0 % (0-6); Hematocrit 38.7 % (33.0-51.0); Hemoglobin 12.3 g/dL (11.5-16.0); IMMATURE GRAN ABSOLUTE AUTO 0.32 K/mm3 (0.00-0.10); IMMATURE GRAN PERCENT AUTO 2 % (0-1); LYMPHOCYTES PERCENT AUTO 5 % (21-46); MONOCYTES PERCENT AUTO 3 % (4-13); Mean Corpuscular HGB 29.8 pg (26.0-34.0); Mean Corpuscular HGB Conc 31.8 g/dL (31.5-36.5); Mean Corpuscular Volume 94 fL (80-100); Mean Platelet Volume 9.5 fL (9.1-12.4); NEUTROPHILS ABSOLUTE AUTO 15.26 K/mm3 (1.96-9.15); NEUTROPHILS PERCENT AUTO 90 % (41-73); Platelet Count 218 K/mm3 (150-400); RDW Coefficient Variation 13.1 % (11.7-14.2); RDW Standard Deviation 44.7 fL (35.1-46.3); Red Blood Cell Count 4.13 M/mm3 (3.80-5.20); White Blood Cell Count 16.96 K/mm3 (4.00-11.30)
[2020-07-19 15:44] LABS: Albumin/Globulin Ratio 0.6 (0.8-1.8); Bilirubin, Total 0.3 mg/dL (0.1-1.0); Bun/Creatinine Ratio 20.5 (12.0-20.0); Calcium, Blood 8.7 mg/dL (8.5-10.1); Creatinine, Blood 3.08 mg/dL (0.40-1.00); Globulin, Blood 4.9 g/dL (2.2-4.0); Magnesium, Blood 2.4 mg/dL (1.6-2.4); Potassium, Blood 3.1 mmol/L (3.5-5.5); Total Protein, Blood 7.9 g/dL (6.4-8.2)
[2020-07-19] MEDS ORDERED: ADDERALL 10 MG10 MG PO (15:55)
[2020-07-19 19:04] LABS: Source, Urine Clean Catch
[2020-07-19 19:08] LABS: Appearance, Urine Clear (Clear); Bilirubin, Urine Neg (Neg); Blood, Urine 2+ (Neg); Color, Urine Yellow (P-Yellow); Glucose Qualitative, Urine Neg (Neg); Ketones, Urine Neg (Neg); Leukocyte Esterase, Urine 3+ (Neg); Nitrite, Urine Neg (Neg); Protein, Urine 2+ (Neg); Urobilinogen, Urine NORM (Normal)
[2020-07-19 19:36] LABS: Bacteria Few /hpf; Squamous Epithelial Cells Few /hpf (Few); White Blood Cells, Urine 50-100 /hpf (0-5)
[2020-07-19 19:37] LABS: Transitional Epithelial Cells Rare /hpf (0-Rare)
== END 2020-07-19 20:10 | disposition home or self-care (01) ==
LOC: ER 14:49
PROVIDERS: Physician Assistant
DX: E86.0 Dehydration (principal); Z88.1 Allergy status to other antibiotic agents; Z88.8 Allergy status to other drugs, medicaments and biological substances; Z91.09 Other allergy status, other than to drugs and biological substances; Z79.899 Other long term (current) drug therapy
CPT/HCPCS: 36415; 74176; 80053; 81001; 83735; 85025; 87086; 96360; 96361; 99284-25; J7120

== ENCOUNTER 2020-07-26 00:06 | Day surgery (SDC) | payer MEDICARE, OTHER ==
[~2020-07-26 00:06] MED LIST changes: +ADDERALL 10 MG10 MG PO
== END 2020-07-26 11:53 | disposition home or self-care (01) ==
LOC: ATC 00:06
DX: E86.0 Dehydration (principal); F01.50 Vascular dementia, unspecified severity, without behavioral disturbance, psychotic disturbance, mood disturbance, and anxiety; E89.0 Postprocedural hypothyroidism; H91.90 Unspecified hearing loss, unspecified ear; Z93.2 Ileostomy status; Z88.1 Allergy status to other antibiotic agents; Z88.8 Allergy status to other drugs, medicaments and biological substances; Z91.048 Other nonmedicinal substance allergy status; Z79.899 Other long term (current) drug therapy
CPT/HCPCS: 96360; 96361; J7030

== ENCOUNTER 2020-08-01 00:11 | Day surgery (SDC) | payer MEDICARE, OTHER ==
--- NOTE | 2020-08-01 16:33 | NUR ---
PT WAS LETHARGIC ON ADMIT AND SHE WAS HYPOTENSIVE. GAVE 1.5L NS VIA PICC LINE. PT DISPOSITION IMPROVED PRIOR TO DC. NOTIFIED [facility] OFFICE. PTS SPOUSE WILL CHECK PT BP WHEN THEY GET HOME.
== END 2020-08-01 15:55 | disposition home or self-care (01) ==
LOC: ATC 00:11
DX: E86.0 Dehydration (principal); N17.9 Acute kidney failure, unspecified; E87.6 Hypokalemia; F01.50 Vascular dementia, unspecified severity, without behavioral disturbance, psychotic disturbance, mood disturbance, and anxiety; Z88.1 Allergy status to other antibiotic agents; Z88.8 Allergy status to other drugs, medicaments and biological substances; Z91.048 Other nonmedicinal substance allergy status; Z79.899 Other long term (current) drug therapy
CPT/HCPCS: 96360; 96361; J7030; J7120

== ENCOUNTER 2020-08-07 04:42 | Emergency (ER) | payer MEDICARE, OTHER ==
[~2020-08-07] VITALS: Ht 162.6 cm; Wt 42.6 kg
--- NOTE | 2020-08-07 08:54 | NUR ---
Pt medicated for pain and aggitation transitioned home. [facility] called will meet family at home.
== END 2020-08-07 11:03 | disposition home or self-care (01) ==
LOC: ER 04:42
DX: G89.29 Other chronic pain (principal); M54.9 Dorsalgia, unspecified; R53.1 Weakness; R63.0 Anorexia; F03.90 Unspecified dementia, unspecified severity, without behavioral disturbance, psychotic disturbance, mood disturbance, and anxiety; Z51.5 Encounter for palliative care; Z86.73 Personal history of transient ischemic attack (TIA), and cerebral infarction without residual deficits; Z91.09 Other allergy status, other than to drugs and biological substances; Z68.1 Body mass index [BMI] 19.9 or less, adult; Z88.8 Allergy status to other drugs, medicaments and biological substances; Z88.1 Allergy status to other antibiotic agents; Z79.899 Other long term (current) drug therapy
CPT/HCPCS: 96374; 96375; 99283-25; J1170; J2060; J7120

== ENCOUNTER 2020-08-08 02:50 | Emergency (ER) | payer MEDICARE, OTHER ==
[~2020-08-08] VITALS: Ht 157.5 cm; Wt 40.8 kg
== END 2020-08-08 05:07 | disposition home or self-care (01) ==
LOC: ER 02:50
DX: R45.1 Restlessness and agitation (principal); N18.30 Chronic kidney disease, stage 3 unspecified; I69.398 Other sequelae of cerebral infarction; F01.50 Vascular dementia, unspecified severity, without behavioral disturbance, psychotic disturbance, mood disturbance, and anxiety; Z79.899 Other long term (current) drug therapy
CPT/HCPCS: 96372; 99283-25; J1200; J1630